=== PATIENT | male | born 1975 | race Caucasian/White ===

== ENCOUNTER 2024-07-19 09:55 | Emergency (ER) | payer OTHER, SELFPAY ==
[2024-07-19] VITALS (9 sets, daily range): BP systolic 110–133; BP diastolic 65–81; PULSE 85–100; RESP 18; TEMP 36.7; O2SAT 96–100; BMI 34.0
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
[2024-07-19] MEDS: BACITRACIN OINT 0.9 GM PCKT 1 APPLIC TOP (13:15)
[2024-07-19] MEDS: KETOROLAC 30 MG/ML VIAL IM (13:16)
== END 2024-07-19 13:38 | disposition home or self-care (01) ==
PROVIDERS: Emergency Provider Emergency Medicine
DX: S20.212A Contusion of left front wall of thorax, initial encounter (principal); S40.212A Abrasion of left shoulder, initial encounter; M25.512 Pain in left shoulder; R07.89 Other chest pain; S09.90XA Unspecified injury of head, initial encounter; V19.9XXA Pedal cyclist (driver) (passenger) injured in unspecified traffic accident, initial encounter
CPT/HCPCS: 70450; 71101; 72125; 73030; 96372; 99284; J1885